=== PATIENT | male | born 1980 | race Caucasian/White ===

== ENCOUNTER 2017-09-23 22:28 | Emergency (ER) | payer SELFPAY ==
[~2017-09-23] VITALS: Ht 177.8 cm; Wt 87.3 kg
[2017-09-23 22:37] VITALS: BP 140/78; PULSE 96; RESP 18; TEMP 98.6; O2SAT 98
[2017-09-23] MEDS ORDERED: ADDE15TA PO (22:37)
[2017-09-23 22:40] VITALS: BP 140/78; PULSE 96; RESP 18; O2SAT 100; O2SAT 97
[2017-09-23 22:55] VITALS: BP 135/90; PULSE 88; RESP 18; O2SAT 98
--- NOTE | 2017-09-23 22:56 | PD ---
HPI Chief Complaint: Cardiac Complaint Time Seen by Provider: 22:50 Travel History International Travel<30 days: No Contact w/Intl Traveler<30days: No Traveled to known affect area: No History of Present Illness HPI 37 year-old male presents to the emergency department by private transportation for one hour of left-sided chest discomfort 1/10 in intensity and a funny feeling in his left arm. Patient has history of ADD and takes Adderall. Patient does not smoke cigarettes does drink alcohol daily and occasionally uses marijuana. Patient's had no recent injury or fall. Patient is unable to identify exacerbating or alleviating factors. Patient does have some associated shortness of breath but does not describe pleuritic pain. Patient has had no fever or chills. No report of long distance travel protracted bedrest her surgical procedure. Patient's had symptoms like this before although not as long in duration. Patient has been discussing with his provider tapering off of Adderall for these concerned that it may be causing him to have funny symptoms. Patient was splinted take aspirin prior to arrival but did not have any. No sweats no nausea no vomiting no referred pain to the neck jaw back and scapular right upper extremity or abdomen. Patient denies history of hypertension dyslipidemia diabetes or tobaccoism. No family history of premature onset cardiac disease or clotting disorder. Patient reports experiencing a very stressful day as he had to drive over from [place] for and [place] [facility] so decided to get evaluated. [facility] Past Medical History Narrative Medical ADD reconstructive surgery right foot; alcohol use marijuana use no tobacco use ; no FH premature onset CAD; nursing notes reviewed Past Surgical History Narrative Surgical nursing notes reviewed Social History Tobacco Use: No (none x 20 years) Allergies-Medications (Allergen,Severity, Reaction): Coded Allergies: No Known Allergies (Unverified , 09/23/17) Reported Meds & Prescriptions Reported Meds & Active Scripts Active Reported Adderall (Amphetamine-Dextroamphetamine) 15 Mg Tab 15 Mg PO BID Avoid late evening doses. Space doses at least 4 to 6 hours if more than once/day dosing. Review of Systems Except as stated in HPI: all other systems reviewed are Neg General / Constitutional: No: Fever, Chills HENT: No: Headaches, Congestion Cardiovascular: Positive: Chest Pain or Discomfort Respiratory: Positive: Shortness of Breath Gastrointestinal: No: Nausea, Vomiting, Abdominal Pain Genitourinary: No: Flank Pain Musculoskeletal: No: Myalgias, Arthralgias Skin: No Rash Neurologic: No: Weakness, Dizziness Psychiatric: No: Anxiety Hematologic/Lymphatic: No: Lymph Node Enlargement Physical Exam Narrative GENERAL: Well-developed well-nourished male in no acute distress no respiratory distress SKIN: Warm and dry. HEAD: Normocephalic. EYES: No scleral icterus. No injection or drainage. NECK: Supple, trachea midline. No JVD or lymphadenopathy. CARDIOVASCULAR: Regular rate and rhythm without murmurs, gallops, or rubs. RESPIRATORY: Breath sounds equal bilaterally. No accessory muscle use. GASTROINTESTINAL: Abdomen soft, non-tender, nondistended. MUSCULOSKELETAL: No cyanosis, or edema. BACK: Nontender without obvious deformity. No CVA tenderness. Data Data Last Documented VS Vital Signs Date Time Temp Pulse Resp B/P (MAP) Pulse Ox O2 Delivery O2 Flow Rate FiO2 09/24/17 00:15 09/24/17 00:00 85 18 100 Room Air 09/23/17 22:37 98.6 Orders Orders Electrocardiogram (09/23/17 22:50) Basic Metabolic Panel (Bmp) (09/23/17 22:50) Ckmb (Isoenzyme) Profile (09/23/17 22:50) Complete Blood Count With Diff (09/23/17 22:50) Magnesium (Mg) (09/23/17 22:50) Prothrombin Time / Inr (Pt) (09/23/17 22:50) Act Partial Throm Time (Ptt) (09/23/17 22:50) Troponin I (09/23/17 22:50) Lipase (09/23/17 22:50) Chest, Single Ap (09/23/17 22:50) Ecg Monitoring (09/23/17 22:50) Bilateral Bp Monitoring (09/23/17 22:50) Iv Access Insert/Monitor (09/23/17 22:50) Oximetry (09/23/17 22:50) Oxygen Administration (09/23/17 22:50) Sodium Chloride 0.9% Flush (Ns Flush) (09/23/17 23:00) Aspirin Chew (Aspirin Chew) (09/23/17 23:00) CKMB (09/23/17 22:30) CKMB% (09/23/17 22:30) Ed Discharge Order (09/24/17 00:05) Labs Laboratory Tests Test 09/23/17 22:30 White Blood Count 7.7 TH/MM3 Red Blood Count 5.19 MIL/MM3 Hemoglobin 14.9 GM/DL Hematocrit 45.7 % Mean Corpuscular Volume 88.1 FL Mean Corpuscular Hemoglobin 28.8 PG Mean Corpuscular Hemoglobin Concent 32.6 % Red Cell Distribution Width 12.7 % Platelet Count 305 TH/MM3 Mean Platelet Volume 7.6 FL Neutrophils (%) (Auto) 59.4 % Lymphocytes (%) (Auto) 31.7 % Monocytes (%) (Auto) 7.7 % Eosinophils (%) (Auto) 0.9 % Basophils (%) (Auto) 0.3 % Neutrophils # (Auto) 4.6 TH/MM3 Lymphocytes # (Auto) 2.4 TH/MM3 Monocytes # (Auto) 0.6 TH/MM3 Eosinophils # (Auto) 0.1 TH/MM3 Basophils # (Auto) 0.0 TH/MM3 CBC Comment DIFF FINAL Differential Comment Prothrombin Time 10.2 SEC Prothromb Time International Ratio 1.0 RATIO Activated Partial Thromboplast Time 27.4 SEC Blood Urea Nitrogen 18 MG/DL Creatinine 1.40 MG/DL Random Glucose 119 MG/DL Calcium Level 8.6 MG/DL Magnesium Level 2.0 MG/DL Sodium Level 136 MEQ/L Potassium Level 3.6 MEQ/L Chloride Level 101 MEQ/L Carbon Dioxide Level 28.0 MEQ/L Anion Gap 7 MEQ/L Estimat Glomerular Filtration Rate 57 ML/MIN Total Creatine Kinase 191 U/L Creatine Kinase MB 0.9 NG/ML Troponin I LESS THAN 0.02 NG/ML Lipase 127 U/L [facility] Medical Decision Making Medical Screen Exam Complete: Yes Emergency Medical Condition: Yes Medical Record Reviewed: Yes Interpretation(s) EKG: Normal sinus rhythm rate [address] elevation injury pattern or ectopy noted Differential Diagnosis Chest pain, ACS, AR, atypical chest pain, esophageal spasm, costochondritis, pleurisy, PE, pneumothorax, adverse adderall reaction Narrative Course Recent placed on teletypesetter monitor IV access obtained continues pulse oximetry in place EKG performed which reveals normal sinus rhythm rate [address] elevation or injury pattern or ectopy noted Specimens collected and sent for resulting Patient given aspirin 162 mg by mouth Patient resting comfortably waiting for his girlfriend to arrive and discomfort is 0/10 in intensity Advise resulted and values found to be in normal range specifically troponin I is less than 0.02 and CK 191, MB 0.9 also not elevated Patient desirous of being discharged home is asymptomatic at this time is encouraged follow-up with his primary care provider when he returns to [place]. Diagnosis Primary Impression: Chest pain, atypical Referrals: Primary Care Physician 2 days Patient Instructions: General Instructions Additional Instructions: Follow-up with your primary care provider Return to the emergency department for any concerns or change in condition May use low-dose aspirin 81 mg daily Med/Other Pt SpecificInfo: No Change to Meds Disposition: 01 DISCHARGE HOME Condition: Stable Марина Esteves MD Sep 23, 2017 22:56
[2017-09-23 22:57] VITALS: BP_SYST 135; BP_SYST 138; BP_DIAS 83; BP_DIAS 90; PULSE 81; RESP 18; O2SAT 97
[2017-09-23] MEDS ORDERED: SODIUM CHLORIDE 0.9% FLUSH 10 ML FLUSH IVF PRN (23:00)
[2017-09-23] MEDS ORDERED: ASPIRIN 81 MG CHEW TAB CHEW ONE (23:00)
[2017-09-23 23:14] LABS: AUTOMATED NEUTROPHIL # 4.6 TH/MM3 (1.8-7.7); BASOPHIL % 0.3 % (0.0-2.0); EOSINOPHIL # 0.1 TH/MM3 (0-0.4); EOSINOPHIL % 0.9 % (0.0-4.0); HEMATOCRIT 45.7 % (39.0-51.0); HEMOGLOBIN 14.9 GM/DL (13.0-17.0); LYMPH % 31.7 % (9.0-44.0); LYMPHOCYTE # 2.4 TH/MM3 (1.0-4.8); MEAN CELL VOLUME 88.1 FL (80.0-100.0); MEAN CORPUSCULAR HEMOGLOBIN 28.8 PG (27.0-34.0); MEAN CORPUSCULAR HGB CONC 32.6 % (32.0-36.0); MEAN PLATELET VOLUME 7.6 FL (7.0-11.0); MONO % 7.7 % (0.0-8.0); MONOCYTE # 0.6 TH/MM3 (0-0.9); NEUT % 59.4 % (16.0-70.0); PLATELET COUNT 305 TH/MM3 (150-450); RED BLOOD COUNT 5.19 MIL/MM3 (4.50-5.90); RED CELL DISTRIBUTION WIDTH 12.7 % (11.6-17.2); WHITE BLOOD COUNT 7.7 TH/MM3 (4.0-11.0)
--- NOTE | 2017-09-23 23:22 | RADRPT ---
EXAM DATE/TIME: 09/23/2017 22:58 [place] COMPARISON: No previous studies available for comparison. INDICATIONS : Chest pain. MEDICAL HISTORY : None. SURGICAL HISTORY : None. ENCOUNTER: Initial ACUITY: 1 day PAIN SCORE: 4/10 LOCATION: Left chest FINDINGS: A single view of the chest demonstrates the lungs to be symmetrically aerated without evidence of mas s, infiltrate or effusion. The cardiomediastinal contours are unremarkable. Osseous structures are intact. CONCLUSION: No acute disease. Fab Li MD on September 23, 2017 at 23:19 Board Certified Radiologist. This report was verified electronically.
[2017-09-23 23:25] LABS: CHLORIDE 101 MEQ/L (98-107); SODIUM (NA) 136 MEQ/L (136-145)
[2017-09-23 23:28] LABS: CALCIUM 8.6 MG/DL (8.5-10.1)
[2017-09-23 23:29] LABS: BLOOD UREA NITROGEN 18 MG/DL (7-18); GLUCOSE,RANDOM 119 MG/DL (74-106); LIPASE 127 U/L (73-393); PROTHROMBIN TIME - PATIENT 10.2 SEC (9.8-11.6)
[2017-09-23 23:32] LABS: GLOMERULAR FILTRATION RATE 57 ML/MIN (>89)
[2017-09-23 23:37] LABS: TROPONIN I LESS THAN 0.02 NG/ML (0.02-0.05)
[2017-09-24] VITALS: BP 140/69; PULSE 85; RESP 18; O2SAT 100
--- NOTE | 2017-09-24 14:28 | EKG ---
Date Performed: 09/23/2017 Time Performed: 22:35:17 PTAGE: 37 years EKG: Sinus rhythm NONSPECIFIC T-WAVE ABNORMALITY BORDERLINE ECG NO PREVIOUS TRACING DOCTOR: Denise Juarez Interpretating Date/Time 09/24/2017 14:27:27
== END 2017-09-24 00:17 | disposition home or self-care (01) ==
LOC: PHED 22:28
DX: R07.89 Other chest pain (principal); R94.31 Abnormal electrocardiogram [ECG] [EKG]; F98.8 Other specified behavioral and emotional disorders with onset usually occurring in childhood and adolescence; Z79.899 Other long term (current) drug therapy
CPT/HCPCS: 71045; 80048; 82550; 82552; 83690; 83735; 84484; 85025; 85610; 85730; 93005